=== PATIENT | female | born 1955 | race Caucasian/White ===

== ENCOUNTER 2018-08-24 12:08 | Emergency (ER) | payer BC, OTHER ==
--- NOTE | 2018-08-24 14:08 | UC ---
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 Pt reports she tripped and her Rt knee fell on the concrete floor. She applied ice, but has not taken any medication in the past - History of Current Complaint Chief Complaint: UCLowerExtremity Stated Complaint: KNEE INJURY Time Seen by Provider: 08/24/18 14:06 Hx Obtained From: Patient ?: No Onset/Duration: Sudden Onset, Lasting Hours - 4 hrs Severity Initially: Moderate Severity Currently: Moderate Pain Intensity: 5 Pain Scale Used: 0-10 Numeric Character: Sharp Aggravating Factor(s): Movement, Prolonged Standing Alleviating Factor(s): Rest, Cold Associated Signs And Symptoms: Positive: Swelling - mild. Negative: Numbness, Tingling Able to Bear Weight: Yes - Risk Factors Septic Arthritis Risk Factor: Negative Gout Risk Factor: Negative - Allergies/Home Medications Allergies/Adverse Reactions: Allergies Allergy/AdvReac Type Severity Reaction Status Date / Time No Known Allergies Allergy Verified 08/24/18 12:50 PMH/Surg Hx/FS Hx/Imm Hx Previously Healthy: Yes Endocrine History: Dyslipidemia Cardiovascular History: Hypertension - Surgical History Surgical History: Yes Surgery Procedure, Year, and Place: Tonsilectomy when she was 7 years old. Hysterectomy 1999 - Family History Known Family History: Positive: Cardiac Disease, Hypertension, Diabetes, Other - HLD, breast CA - Social History Occupation: Employed Full-time Lives: With Family Alcohol Use: Occasionally Substance Use Type: None Smoking Status (MU): Never Smoked Tobacco Review of Systems All Other Systems Reviewed And Are Negative: Yes Constitutional: Positive: Negative Skin: Positive: Negative Eyes: Positive: Negative ENT: Positive: Negative Respiratory: Positive: Negative Cardiovascular: Positive: Negative Gastrointestinal: Positive: Negative Genitourinary: Positive: Negative Motor: Positive: Negative Neurovascular: Positive: Negative Musculoskeletal: Positive: Decreased ROM - RT knee, Other: - Rt knee pain s/p injury Neurological: Positive: Negative Psychological: Positive: Negative Is Patient Immunocompromised?: No Physical Exam - Summary Physical Exam Summary: Vital Signs Reviewed: Yes General: well developed, well nourished female sitting in the examining table w/ o any apparent distress Eyes: Positive: Conjunctiva Clear - PERRLA, EOMI, fundi grossly normal ENT: Positive: Normal ENT inspection, Hearing grossly normal, Pharynx normal, TMs normal Neck: Positive: Supple, Nontender, No Lymphadenopathy Respiratory: Positive: Chest nontender, Lungs clear, Normal breath sounds, No respiratory distress Cardiovascular: Positive: RRR, No Murmur, Pulses Normal, Brisk Capillary Refill Abdomen Description: Positive: Nontender, No Organomegaly, Soft. Negative: CVA Tenderness (R), CVA Tenderness (L) Bowel Sounds: Positive: Present Musculoskeletal: Positive: Strength Intact, No Edema,Rt Knee: Pt is able to bear weight and ambulate with limping. No surface trauma, soft tissue swelling , or obvious effusion. No overlying erythema or warmth. The L knee is without obvious asymmetry or deformity when compared with the R knee. Decreased ROM of LF knee due to pain. No tenderness to palpation of the patella, no effusion or ballottement. No tenderness over the infrapatellar tendon. Point tenderness over the medial joint line, No tenderness over the medial or lateral tibial plateaus. No tenderness over the proximal fibular head, No tenderness, fullness or mass of the popliteal fossa. No quadriceps tenderness. No laxity of the ACL. PCL, MCL, or LCL. no collateral ligament laxity to valgus or varus stress. Negative Ari/Drawer sign. Negative Sandra. Distal motor and neurovascular status intact. Neurological Exam: Normal Psychological Exam: Normal Skin Exam: Normal Triage Information Reviewed: Yes Vital Signs: Initial Vital Signs Temp 99.2 F 08/24/18 12:43 Pulse 84 08/24/18 12:43 Resp 18 08/24/18 12:43 BP 154/74 08/24/18 12:43 Pulse Ox 97 08/24/18 12:43 Knee Pain Course/Dx - Course Course Of Treatment: Rt knee X-ray ordered, Impression: Soft tissue swelling, no acute fracture observed. Pt most likely with a RT knee Sprain. Pt knee immobilized with ERWIN bandage and advised to use the crutches he has at home to avoid too much weight bearing. Pt given Ibuprofen PO by the nurse to alleviate symptoms. and mother advised to continue w/ Ibuprofen PO for pain. Pt advised RICE, take medication for pain and to f/u with her Orthopedic DR Shanks in 1 week if not improvement of symptoms for further treatment. D/C instructions explained. Mother and Pt understood and agreed and left the clinic ambulating. - Differential Dx/Diagnosis Differential Diagnosis/HQI/PQRI: Contusion, Dislocation, Sprain, Strain, Tendonitis Provider Diagnosis: Right knee injury, Right knee sprain, Uncontrolled hypertension Discharge - Sign-Out/Discharge Documenting (check all that apply): Patient Departure - d/C home All imaging exams completed and their final reports reviewed: Yes - Discharge Plan Condition: Stable Disposition: HOME Patient Education Materials: Knee Sprain (ED) Forms: *Work Release Referrals: Brigette Beaulieu NP [Primary Care Provider] - 1 Week Miguel Knapp MD [Medical Doctor] - 1 Week Additional Instructions: 1-Please take medications as directed to alleviate pain and swelling. 2-Please apply ice, keep your knee immobilized with the splint. 3- Please f/u with Orthopedic DR Knapp or your PCP in 1 week is not improvement of symptoms for further evaluation and treatment. 4- Your BP is elevated today. please decrease salt in your diet, monitor BP and if it continues to be elevated please f/u with your PCP for further management. - Billing Disposition and Condition Condition: STABLE Disposition: Home
[2018-08-24] MEDS: Ibuprofen TAB* 400 MG PO ONE (14:50)
[2018-08-24 15:22] VITALS: BP 148/64
== END 2018-08-24 15:22 | disposition home or self-care (01) ==
LOC: UCEAST 12:08
DX: S83.91XA Sprain of unspecified site of right knee, initial encounter (principal); I10 Essential (primary) hypertension; W01.0XXA Fall on same level from slipping, tripping and stumbling without subsequent striking against object, initial encounter; Y92.9 Unspecified place or not applicable
CPT/HCPCS: 99213; A9270-GY; G0463